=== PATIENT | female | born 1975 ===

== ENCOUNTER 2018-03-30 14:09 | Inpatient (IN) | payer OTHER ==
[2018-03-30] MEDS ORDERED: Sodium Chloride 0.9% 1,000 ML IV STA ×2 (14:42→16:32)
--- NOTE | 2018-03-30 14:53 | ED PDOC ---
HPI: General Adult Time Seen by Provider: 03/30/18 14:26 Chief Complaint (Nursing): High Blood Sugar Chief Complaint (Provider): High Blood Sugar History Per: Patient History/Exam Limitations: no limitations Onset/Duration Of Symptoms: Days (x 2) Current Symptoms Are (Timing): Still Present Additional Complaint(s): 43 year old female with no significant medical history presents to the ED for evaluation of abnormal lab results and mild pain upon urination for the last two days. She also reports feeling lightheaded today. Patient was seen at [facility] yesterday because she believed that she developed another yeast infection since being diagnosed with one last week. After further testing, she was found to have high glucose levels in her urine and dried vaginal blood during the exam. Otherwise, she denies cough, chest pain, shortness of breath, abdominal pain, back pain, nausea, vomiting, diarrhea, leg pain or swelling and vertigo. PMD: none provided Past Medical History Reviewed: Historical Data, Nursing Documentation, Vital Signs Vital Signs: Last Vital Signs Temp 102.8 F H 03/30/18 14:24 Pulse 150 H 03/30/18 14:24 Resp 18 03/30/18 14:24 BP 138/74 03/30/18 14:24 Pulse Ox 99 03/30/18 14:24 - Medical History PMH: No Chronic Diseases - Surgical History Surgical History: No Surg Hx - Family History Family History: States: Diabetes (father) - Allergies Allergies/Adverse Reactions: Allergies Allergy/AdvReac Type Severity Reaction Status Date / Time codeine Allergy RASH Verified 03/30/18 14:24 Penicillins Allergy RASH Verified 03/30/18 14:24 Review of Systems ROS Statement: Except As Marked, All Systems Reviewed And Found Negative Constitutional: Positive for: Fever, Other (lightheadedness) Cardiovascular: Negative for: Chest Pain Respiratory: Negative for: Cough, Shortness of Breath Genitourinary Female: Positive for: Dysuria (mild). Negative for: Frequency, Hematuria, Pelvic Pain Musculoskeletal: Negative for: Back Pain Neurological: Negative for: Headache, Dizziness Physical Exam - Reviewed Nursing Documentation Reviewed: Yes Vital Signs Reviewed: Yes - Physical Exam Appears: Positive for: No Acute Distress Head Exam: Positive for: ATRAUMATIC, NORMAL INSPECTION, NORMOCEPHALIC Skin: Positive for: Normal Color, Warm, Dry Eye Exam: Positive for: EOMI, Normal appearance, PERRL Neck: Positive for: Normal, Painless ROM, Supple Cardiovascular/Chest: Positive for: Tachycardia (with regular rhythm) Respiratory: Positive for: Normal Breath Sounds. Negative for: Respiratory Distress Gastrointestinal/Abdominal: Positive for: Normal Exam, Soft. Negative for: Tenderness, Mass, Distended, Guarding Back: Positive for: Normal Inspection. Negative for: L CVA Tenderness, R CVA Tenderness, Vertebral Tenderness Extremity: Positive for: Normal ROM (upper and lower extremities). Negative for: Deformity, Swelling Neurologic/Psych: Positive for: Alert, Oriented (x 3). Negative for: Motor/Sensory Deficits - Laboratory Results Result Diagrams: 03/30/18 15:14 03/30/18 15:14 Lab Results: 14.1 wbc, glucose elevated, urine wbc - ECG ECG: Positive for: Interpreted By Me, Viewed By Me ECG Rhythm: Positive for: Sinus Tachycardia O2 Sat by Pulse Oximetry: 99 (RA) Pulse Ox Interpretation: Normal - Progress ED Course And Treament: 1530: Continue fluids. Possible sepsis. 1640: Stable. Continue hydration. No pain. Feels better. Spoke with Dr. Byrd. Will admit. - Critical Care Total Time (In Min): 30 Documented Critical Care: Time excludes all time spent performint seperately billable procedures Medical Decision Making Medical Decision Makin:41 Impression: elevated glucose Initial Plan: --EKG --VBG --CBC --CMP --Glucose POC --Urine dip --Blood cx --Urine cx --UA --NS IV --Cipro 400 mg in 200 ml IV --Ibuprofen 600 mg PO --Influenza AB ------ Scribe Attestation: Documented by Brionna Nickreson acting as a scribe for Arnol Cook MD Provider Scribe Attestation: All medical record entries made by the Scribe were at my direction and personally dictated by me. I have reviewed the chart and agree that the record accurately reflects my personal performance of the history, physical exam, medical decision making, and the department course for this patient. I have also personally directed, reviewed, and agree with the discharge instructions and disposition. Disposition - Clinical Impression Clinical Impression: Hyperglycemia, Sepsis, UTI (urinary tract infection) Counseled Patient/Family Regarding: Studies Performed, Diagnosis - Disposition Disposition Time: 16:41 Condition: FAIR - Pt Status Changed To: Hospital Disposition Of: Inpatient - Admit Certification Admit to Inpatient:: After my assessment, the patient will require hospitalization for at least two midnights. This is because of the severity of symptoms shown, intensity of services needed, and/or the medical risk in this patient being treated as an outpatient. - POA Present On Arrival: Poor Glycemic Control
[2018-03-30] MEDS ORDERED: Ciprofloxacin 400mg/200ml D5W 400 MG/200 ML BAG IV STA (15:00)
[2018-03-30 15:19] LABS: BASO # 0.1 K/uL (0.0-0.2); BASO % 0.9 % (0.0-2.0); HEMOGLOBIN 10.2 g/dL (12.0-16.0); LYMPH # 0.3 K/uL (1.0-4.3); LYMPH % 1.8 % (20.0-40.0); MEAN CELL VOLUME 66.7 fl (81.0-99.0); MEAN CORPUSCULAR HEMOGLOBIN 21.2 pg (27.0-31.0); MEAN CORPUSCULAR HGB CONC 31.8 g/dL (33.0-37.0); MEAN PLATELET VOLUME 8.3 fl (7.2-11.7); MONO # 0.4 K/uL (0.0-0.8); MONO % 2.7 % (0.0-10.0); NEUT # 13.3 K/uL (1.8-7.0); NEUT % 94.6 % (50.0-75.0); PLATELET COUNT 262 K/uL (130-400); RBC 4.81 Mil/uL (3.80-5.20); RED CELL DISTRIBUTION WIDTH 16.5 % (11.5-14.5); WHITE BLOOD COUNT 14.1 K/uL (4.8-10.8)
[2018-03-30] MEDS ORDERED: Ciprofloxacin 400mg/200ml D5W 400 MG/200 ML BAG IVPB ONE (15:31)
[2018-03-30 15:35] LABS: VENOUS BLOOD GAS BASE EXCESS -1.7 mmol/L (0.0-2.0); VENOUS BLOOD GAS PCO2 34 mmHg (40-60); VENOUS BLOOD GAS PO2 38 mm/Hg (30-55); VENOUS BLOOD PH 7.42 (7.32-7.43)
[2018-03-30 15:36] LABS: SQUAMOUS EPITHIAL 17 /hpf (0-5); URINE BACTERIA RARE (<OCC); URINE BILIRUBIN NEGATIVE (NEGATIVE); URINE BLOOD MODERATE (NEGATIVE); URINE CLARITY CLOUDY (Clear); URINE COLOR YELLOW (YELLOW); URINE GLUCOSE (UA) >=500 mg/dL (NEGATIVE); URINE LEUKOCYTE ESTERASE NEG Leu/uL (Negative); URINE PROTEIN 100 mg/dL (NEGATIVE); URINE UROBILINOGEN 0.2-1.0 mg/dL (0.2-1.0)
[2018-03-30 15:40] LABS: ALB/GLOB RATIO 1.1 (1.0-2.1); ALBUMIN 3.9 g/dL (3.5-5.0); ALT/SGPT 29 U/L (9-52); AST/SGOT 34 U/L (14-36); BLOOD UREA NITROGEN 6 mg/dl (7-17); CALCIUM 8.4 mg/dL (8.4-10.2); GFR NON-AFRICAN AMERICAN > 60
[2018-03-30 15:59] LABS: ANISOCYTOSIS SLIGHT; BANDS 6 % (0-2); LYMPHOCYTE 3 % (20-50); METAMYELOCYTE 1 % (0-0); PLATELET ESTIMATE NORMAL (NORMAL); TOTAL CELLS COUNTED 100
[2018-03-30 16:00] LABS: MICROCYTOSIS SLIGHT; MONOCYTE 3 % (0-10); NEUTROPHIL 87 % (42-75); POIKILOCYTOSIS SLIGHT
[2018-03-30] MEDS ORDERED: Insulin NPH Human 100 Units/ml Inj SC STA (16:31)
[2018-03-30] MEDS ORDERED: Insulin Regular 100 units/ml ONE (16:34)
[2018-03-30] MEDS ORDERED: Insulin Regular 100 units/ml IV STA (16:45)
--- NOTE | 2018-03-30 16:57 | CP.PCM.HP ---
History of Present Illness - History of Present Illness History of Present Illness: 43-year-old female with no PMH presents to ED due to glucose found in her urine 1 day prior to presentation at an urgent care. She has been febrile (subjective) with vaginal itching and assumed she had a yeast infection, which is why she went to urgent care. She denies dysuria, hematuria, abnormal vaginal discharge, flank pain, chest pain, difficulty breathing, weight loss, polydipsia and abdominal fullness but does admit to chills, polyuria and vaginal pruritis. PMD: Denies PMH: Denies OBHx: G0, LMP Mar 13 Meds: Denies FHx: Mother DM Social: Denies alcohol, tobacco, illicit drugs ED Course: - Vitals: Temp: Tmax 103.2F, HR: 150, repeat 130 - UA: WBC 13, 17 Epithelial, Nitrate +, glucose >500, ketones 80 - CBC: WBC 14.1 - Cipro 400 mg once in ED - Glucose 450 on admission, Repeat glucose 361 s/p Insulin 3 units - Urine culture, blood culture Present on Admission - Present on Admission Any Indicators Present on Admission: No Review of Systems - Constitutional Constitutional: Chills, Fever. absent: Night Sweats - Cardiovascular Cardiovascular: absent: Chest Pain - Respiratory Respiratory: absent: Dyspnea - Genitourinary Genitourinary: Urinary Frequency. absent: Dysuria, Flank Pain, Hematuria - Reproductive: Female Reproductive:Female: Genital Pruritis. absent: Vaginal Discharge - Musculoskeletal Musculoskeletal: absent: Back Pain - Neurological Neurological: absent: Weakness - Endocrine Endocrine: Polyuria. absent: Cold Intolorance, Polydipsia, Polyphagia Past Patient History - Past Social History Smoking Status: Never Smoked - PSYCHIATRIC Hx Substance Use: No Meds Allergies/Adverse Reactions: Allergies Allergy/AdvReac Type Severity Reaction Status Date / Time codeine Allergy RASH Verified 03/30/18 14:24 Penicillins Allergy RASH Verified 03/30/18 14:24 Physical Exam - Constitutional Appears: Non-toxic, No Acute Distress - Head Exam Head Exam: NORMAL INSPECTION - Eye Exam Eye Exam: Normal appearance - ENT Exam ENT Exam: Mucous Membranes Moist - Respiratory Exam Respiratory Exam: NORMAL BREATHING PATTERN. absent: Respiratory Distress - Cardiovascular Exam Cardiovascular Exam: Tachycardia - GI/Abdominal Exam GI & Abdominal Exam: Soft. absent: Firm, Guarding, Rebound, Tenderness - Extremities Exam Extremities exam: Positive for: normal inspection - Back Exam Back exam: absent: CVA tenderness (L), CVA tenderness (R) - Neurological Exam Neurological exam: Alert, Normal Gait, Oriented x3 - Psychiatric Exam Psychiatric exam: Normal Affect, Normal Mood - Skin Skin Exam: Diaphoretic, Normal Color, Warm Results - Vital Signs Recent Vital Signs: Last Vital Signs Temp 103.2 F H 03/30/18 16:37 Pulse 130 H 03/30/18 16:34 Resp 18 03/30/18 14:24 BP 138/74 03/30/18 14:24 Pulse Ox 99 03/30/18 16:41 - Labs Result Diagrams: 03/30/18 15:14 03/30/18 15:14 Labs: Laboratory Results - last 24 hr 03/30/18 03/30/18 03/30/18 14:49 15:07 15:12 WBC RBC Hgb Hct MCV MCH MCHC RDW Plt Count MPV Neut % (Auto) Lymph % (Auto) [place] % (Auto) Eos % (Auto) Baso % (Auto) Neut # (Auto) Lymph # (Auto) [place] # (Auto) Eos # (Auto) Baso # (Auto) Neutrophils % (Manual) Band Neutrophils % Lymphocytes % (Manual) Monocytes % (Manual) Metamyelocytes % Platelet Estimate Poikilocytosis (manual Anisocytosis (manual) Microcytosis (manual) pO2 VBG pH VBG pCO2 VBG HCO3 VBG Total CO2 VBG O2 Sat (Calc) VBG Base Excess VBG Potassium Glucose Lactate FiO2 Crit Value Called To Crit Value Called By Crit Value Read Back Blood Gas Notified Time Sodium Potassium Chloride Carbon Dioxide Anion Gap BUN Creatinine Est GFR ( Amer) Est GFR (Non-Af Amer) POC Glucose (mg/dL) 463 H* Random Glucose Calcium Total Bilirubin AST ALT Alkaline Phosphatase Total Protein Albumin Globulin Albumin/Globulin Ratio Venous Blood Potassium Urine Color Yellow Urine Clarity Cloudy Urine pH 6.0 Ur Specific [place] 1.035 H Urine Protein 100 Urine Glucose (UA) >=500 Urine Ketones 80 Urine Blood Moderate Urine Nitrate Positive H Urine Bilirubin Negative Urine Urobilinogen 0.2-1.0 Ur Leukocyte Esterase Neg Urine RBC (Auto) 4 H Urine Microscopic WBC 13 H Ur Squamous Epith Cells 17 H Urine Bacteria Rare Influenza Typ A,B (EIA) Negative for flu a/b 03/30/18 03/30/18 03/30/18 15:14 15:14 15:30 WBC 14.1 H RBC 4.81 Hgb 10.2 L Hct 32.1 L MCV 66.7 L MCH 21.2 L MCHC 31.8 L RDW 16.5 H Plt Count 262 MPV 8.3 Neut % (Auto) 94.6 H Lymph % (Auto) 1.8 L [place] % (Auto) 2.7 Eos % (Auto) 0.0 Baso % (Auto) 0.9 Neut # (Auto) 13.3 H Lymph # (Auto) 0.3 L [place] # (Auto) 0.4 Eos # (Auto) 0.0 Baso # (Auto) 0.1 Neutrophils % (Manual) 87 H Band Neutrophils % 6 H Lymphocytes % (Manual) 3 L Monocytes % (Manual) 3 Metamyelocytes % 1 H Platelet Estimate Normal Poikilocytosis (manual Slight Anisocytosis (manual) Slight Microcytosis (manual) Slight pO2 38 VBG pH 7.42 VBG pCO2 34 L VBG HCO3 23.0 VBG Total CO2 23.1 VBG O2 Sat (Calc) 72.9 H VBG Base Excess -1.7 L VBG Potassium 3.9 Glucose 465 H* Lactate 2.8 H FiO2 21.0 Crit Value Called To Ronald tejeda md Crit Value Called By 6027 Crit Value Read Back Y Blood Gas Notified Time 1535 Sodium 128 L 128.0 L Potassium 3.9 Chloride 92 L 95.0 L Carbon Dioxide 21 L Anion Gap 19 BUN 6 L Creatinine 0.5 L Est GFR ( Amer) > 60 Est GFR (Non-Af Amer) > 60 POC Glucose (mg/dL) Random Glucose 450 H* Calcium 8.4 Total Bilirubin 0.9 AST 34 ALT 29 Alkaline Phosphatase 150 H Total Protein 7.3 Albumin 3.9 Globulin 3.5 Albumin/Globulin Ratio 1.1 Venous Blood Potassium 3.9 Urine Color Urine Clarity Urine pH Ur Specific [place] Urine Protein Urine Glucose (UA) Urine Ketones Urine Blood Urine Nitrate Urine Bilirubin Urine Urobilinogen Ur Leukocyte Esterase Urine RBC (Auto) Urine Microscopic WBC Ur Squamous Epith Cells Urine Bacteria Influenza Typ A,B (EIA) 03/30/18 16:31 WBC RBC Hgb Hct MCV MCH MCHC RDW Plt Count MPV Neut % (Auto) Lymph % (Auto) [place] % (Auto) Eos % (Auto) Baso % (Auto) Neut # (Auto) Lymph # (Auto) [place] # (Auto) Eos # (Auto) Baso # (Auto) Neutrophils % (Manual) Band Neutrophils % Lymphocytes % (Manual) Monocytes % (Manual) Metamyelocytes % Platelet Estimate Poikilocytosis (manual Anisocytosis (manual) Microcytosis (manual) pO2 VBG pH VBG pCO2 VBG HCO3 VBG Total CO2 VBG O2 Sat (Calc) VBG Base Excess VBG Potassium Glucose Lactate FiO2 Crit Value Called To Crit Value Called By Crit Value Read Back Blood Gas Notified Time Sodium Potassium Chloride Carbon Dioxide Anion Gap BUN Creatinine Est GFR ( Amer) Est GFR (Non-Af Amer) POC Glucose (mg/dL) 361 H Random Glucose Calcium Total Bilirubin AST ALT Alkaline Phosphatase Total Protein Albumin Globulin Albumin/Globulin Ratio Venous Blood Potassium Urine Color Urine Clarity Urine pH Ur Specific [place] Urine Protein Urine Glucose (UA) Urine Ketones Urine Blood Urine Nitrate Urine Bilirubin Urine Urobilinogen Ur Leukocyte Esterase Urine RBC (Auto) Urine Microscopic WBC Ur Squamous Epith Cells Urine Bacteria Influenza Typ A,B (EIA) Assessment & Plan - Assessment and Plan (Free Text) Plan: Sepsis likely secondary to acute complicated UTI - ED Vitals: Temp: Tmax 103.2F, HR: 150, repeat 130 - CBC: WBC 14.1 - UA: WBC 13, 17 Epithelial, Nitrate + - Lactate 2.8 - Cipro 400 mg in ED - Cipro 400 mg Q12H - Follow-up blood & urine culture Acute complicated UTI - UA: WBC 13, 17 Epithelial, Nitrate + - Vitals: Temp: Tmax 103.2F, HR: 150, repeat 130 - CBC: WBC 14.1 - Cipro 400 mg in ED - Cipro 400 mg Q12H - Follow-up urine culture Hyperglycemia - Glucose 450 on admission - Repeat glucose 361 s/p Insulin 3 units - UA glucose >500, ketones 80 - Follow-up HgA1C, TSH, Lipid Panel - As per pharmacy Cipro only available in D5W - Insulin sliding scale ordered + reflex hypo - Monitor Hyponatremia - Na 128, Corrected 135.0 mEq/L - Falsely low, d/t hyperglycemia - IVF: NaCl bolus in ED - Monitor DVT Prophylaxis - Lovenox
[2018-03-30] MEDS ORDERED: Glucagon Recombinant 1 mg Inj IM PRN (17:24)
[2018-03-30] MEDS ORDERED: Dextrose 50% SYRINGE Inj (50 ml) IV PRN (17:24)
[2018-03-30 18:50] LABS: VENOUS BLOOD GAS PCO2 24 mmHg (40-60); VENOUS BLOOD GAS PO2 51 mm/Hg (30-55); VENOUS BLOOD PH 7.42 (7.32-7.43)
[2018-03-30] MEDS ORDERED: Influenza Vaccine (5 YR UP)/PF 60 MCG/0.5 ML SYR IM ONE (21:00)
--- NOTE | 2018-03-30 22:28 | CARD ---
APPROVED REPORT Date of service: 03/30/2018 EKG Measurement Heart [id number] <Conclusion> Sinus tachycardia Junctional ST depression, probably normal Borderline ECG
[2018-03-31] MEDS: Ciprofloxacin 400mg/200ml D5W 400 MG/200 ML BAG IVPB SCH ×2 (03:18→16:19)
[2018-03-31 05:44] LABS: HEMOGLOBIN 9.3 g/dL (12.0-16.0); MEAN CELL VOLUME 67.2 fl (81.0-99.0); MEAN CORPUSCULAR HEMOGLOBIN 21.4 pg (27.0-31.0); MEAN CORPUSCULAR HGB CONC 31.8 g/dL (33.0-37.0); RBC 4.35 Mil/uL (3.80-5.20); RED CELL DISTRIBUTION WIDTH 16.7 % (11.5-14.5); WHITE BLOOD COUNT 9.1 K/uL (4.8-10.8)
[2018-03-31 06:41] LABS: BLOOD UREA NITROGEN 10 mg/dl (7-17); CALCIUM 7.8 mg/dL (8.4-10.2); GFR NON-AFRICAN AMERICAN > 60; HDL CHOLESTEROL 37 MG/DL (30-70)
[2018-03-31 06:42] LABS: LDL CHOLESTEROL 117 mg/dL (0-129)
[2018-03-31 09:34] VITALS: BMI 35.0
[2018-03-31] MEDS: Enoxaparin 40 mg Syringe SC SCH (09:35)
--- NOTE | 2018-03-31 10:26 | CP.PCM.PN ---
Subjective - Date & Time of Evaluation Date of Evaluation: 03/31/18 Time of Evaluation: 10:26 - Subjective Subjective: 43-year-old female seen ambulating in room in no acute distress. She admits to feeling better today and denies chills, diaphoresis, headache, dysuria, hematuria, nausea and vomiting. Educated patient on HgA1C, DM and Metformin; she denies any adverse effects to the metformin thus far. Objective - Vital Signs/Intake and Output Vital Signs (last 24 hours): Temp Pulse Resp BP Pulse Ox 97.9 F 92 H 20 101/64 96 03/31/18 08:22 03/31/18 08:22 03/31/18 08:22 03/31/18 08:22 03/31/18 08:22 - Medications Medications: Current Medications Acetaminophen (Tylenol 325mg Tab) 650 mg PO Q6 PRN PRN Reason: Fever >100.4 F Dextrose (Dextrose 50% Inj) 0 ml IV STAT PRN; Protocol PRN Reason: Hypoglycemia Protocol Dextrose (Glutose 15) 0 gm PO ONCE PRN; Protocol PRN Reason: Hypoglycemia Protocol Enoxaparin Sodium (Lovenox) 40 mg SC DAILY [facility]; Protocol Last Admin: 03/31/18 09:35 Dose: 40 mg Glucagon (Glucagen Diagnostic Kit) 0 mg IM STAT PRN; Protocol PRN Reason: Hypoglycemia Protocol Ciprofloxacin (Cipro 400mg/200ml Dsw) 400 mg in 200 mls @ 200 mls/hr IVPB BID SABINO; Protocol Last Admin: 03/31/18 03:18 Dose: 200 mls/hr Metformin HCl (Glucophage) 500 mg PO BIDWM SABINO Last Admin: 03/31/18 08:35 Dose: 500 mg - Labs Labs: 03/31/18 04:30 03/31/18 04:30 - Constitutional Appears: Non-toxic, No Acute Distress - Head Exam Head Exam: NORMAL INSPECTION - Eye Exam Eye Exam: Normal appearance - ENT Exam ENT Exam: Mucous Membranes Moist - Neck Exam Neck Exam: Normal Inspection - Respiratory Exam Respiratory Exam: NORMAL BREATHING PATTERN. absent: Respiratory Distress - Cardiovascular Exam Cardiovascular Exam: Tachycardia - GI/Abdominal Exam GI & Abdominal Exam: Soft. absent: Tenderness - Back Exam Back Exam: absent: CVA tenderness (L), CVA tenderness (R) - Neurological Exam Neurological Exam: Alert, Awake, Normal Gait, Oriented x3 - Psychiatric Exam Psychiatric exam: Normal Affect, Normal Mood - Skin Skin Exam: Dry, Intact, Normal Color, Warm Assessment and Plan - Assessment and Plan (Free Text) Assessment: 43 y/o female with no PMH presented with symptoms of dysuria and vaginal itching. She was diagnosed with glucosuria and ketone in urine in urgent care center one day prior to ED presentation. In ED found to be febrile (Tmax 103), WBC 14K, lactate 2.8 with glucose 430. She was tachycardic (HR 150), Na 128 (corrected 135), UA positive for bacteria, nitrate positive WBC 13. Plan: Sepsis likely secondary to acute complicated UTI - ED Vitals: Temp: Tmax 103.2F, HR: 150, repeat 130 - Remains Tachycardic - Afebrile - CBC: WBC 9.1 (14.1 admission) - UA admission: WBC 13, 17 Epithelial, Nitrate + - Lactate on admission 2.8 - Cipro 400 mg in ED - Cipro 400 mg Q12H - Follow-up blood & urine culture Acute complicated UTI - Initial UA: WBC 13, 17 Epithelial, Nitrate + - CBC: WBC 9.1 (14.1 admission) - Cipro 400 mg in ED - Cipro 400 mg Q12H - Follow-up urine culture New onset DM - Glucose 225 (450 on admission) - Metformin 500mg BID - Follow-up HgA1C - TSH 1.68 - Triglycerides 184, cholesterol WNL - As per pharmacy Cipro only available in D5W - Insulin sliding scale ordered + reflex hypo - Monitor Hyponatremia - Na 128, corrected 135.0 mEq/L - IVF: NaCl bolus in ED - Monitor DVT Prophylaxis - Lovenox
[2018-03-31] MEDS: Insulin Regular 100 units/ml SC SCH ×2 (16:20→21:29)
[2018-04-01 00:10] VITALS: RESP 18
[2018-04-01 05:24] LABS: MEAN CELL VOLUME 65.9 fl (81.0-99.0); MEAN CORPUSCULAR HEMOGLOBIN 20.8 pg (27.0-31.0); MEAN CORPUSCULAR HGB CONC 31.6 g/dL (33.0-37.0); RBC 4.33 Mil/uL (3.80-5.20); RED CELL DISTRIBUTION WIDTH 16.6 % (11.5-14.5)
[2018-04-01 05:31] LABS: BLOOD UREA NITROGEN 7 mg/dl (7-17); CALCIUM 8.3 mg/dL (8.4-10.2); GFR NON-AFRICAN AMERICAN > 60
[2018-04-01] MEDS: Insulin Regular 100 units/ml SC SCH (06:46)
[2018-04-01 07:56] VITALS: TEMP 99; O2SAT 97
[2018-04-01 08:13] LABS: SQUAMOUS EPITHIAL 1 /hpf (0-5); URINE BACTERIA RARE (<OCC); URINE BILIRUBIN NEGATIVE (NEGATIVE); URINE BLOOD NEGATIVE (NEGATIVE); URINE CLARITY SLIGHTY-CLOUDY (Clear); URINE COLOR YELLOW (YELLOW); URINE GLUCOSE (UA) 150 mg/dL (NEGATIVE); URINE LEUKOCYTE ESTERASE NEG Leu/uL (Negative); URINE PROTEIN NEGATIVE (NEGATIVE)
[2018-04-01] MEDS ORDERED: Potassium Chloride 20 mEq ER Tab PO ONE (08:30)
[2018-04-01] MEDS: Ciprofloxacin 400mg/200ml D5W 400 MG/200 ML BAG IVPB SCH (09:07)
[2018-04-01] MEDS: Enoxaparin 40 mg Syringe SC SCH (09:07)
--- NOTE | 2018-04-01 11:08 | CP.PCM.DIS ---
Provider - Provider Date of Admission: 03/30/18 16:37 Attending physician: Ralph Byrd MD Time Spent in preparation of Discharge (in minutes): 25 Diagnosis - Discharge Diagnosis (1) Sepsis Status: Acute (2) UTI (urinary tract infection) Status: Acute Hospital Course - Lab Results Lab Results: Micro Results 03/30/18 15:07 Urine,Clean Catch Urine Culture - Final Escherichia Coli 03/30/18 15:31 Blood-Venous Blood Culture - Preliminary NO GROWTH AFTER 24 HOURS 03/30/18 15:14 Blood-Venous Gram Stain - Final Most Recent Lab Values WBC 6.0 K/uL (4.8-10.8) 04/01/18 04:45 RBC 4.33 Mil/uL (3.80-5.20) 04/01/18 04:45 Hgb 9.0 g/dL (12.0-16.0) L 04/01/18 04:45 Hct 28.5 % (34.0-47.0) L 04/01/18 04:45 MCV 65.9 fl (81.0-99.0) L 04/01/18 04:45 MCH 20.8 pg (27.0-31.0) L 04/01/18 04:45 MCHC 31.6 g/dL (33.0-37.0) L 04/01/18 04:45 RDW 16.6 % (11.5-14.5) H 04/01/18 04:45 Plt Count 205 K/uL (130-400) 04/01/18 04:45 MPV 8.3 fl (7.2-11.7) 03/30/18 15:14 Neut % (Auto) 94.6 % (50.0-75.0) H 03/30/18 15:14 Lymph % (Auto) 1.8 % (20.0-40.0) L 03/30/18 15:14 [place] % (Auto) 2.7 % (0.0-10.0) 03/30/18 15:14 Eos % (Auto) 0.0 % (0.0-4.0) 03/30/18 15:14 Baso % (Auto) 0.9 % (0.0-2.0) 03/30/18 15:14 Neut # (Auto) 13.3 K/uL (1.8-7.0) H 03/30/18 15:14 Lymph # (Auto) 0.3 K/uL (1.0-4.3) L 03/30/18 15:14 [place] # (Auto) 0.4 K/uL (0.0-0.8) 03/30/18 15:14 Eos # (Auto) 0.0 K/uL (0.0-0.7) 03/30/18 15:14 Baso # (Auto) 0.1 K/uL (0.0-0.2) 03/30/18 15:14 Neutrophils % (Manual) 87 % (42-75) H 03/30/18 15:14 Band Neutrophils % 6 % (0-2) H 03/30/18 15:14 Lymphocytes % (Manual) 3 % (20-50) L 03/30/18 15:14 Monocytes % (Manual) 3 % (0-10) 03/30/18 15:14 Metamyelocytes % 1 % (0-0) H 03/30/18 15:14 Platelet Estimate Normal (NORMAL) 03/30/18 15:14 Poikilocytosis (manual Slight 03/30/18 15:14 Anisocytosis (manual) Slight 03/30/18 15:14 Microcytosis (manual) Slight 03/30/18 15:14 pO2 51 mm/Hg (30-55) 03/30/18 18:48 VBG pH 7.42 (7.32-7.43) 03/30/18 18:48 VBG pCO2 24 mmHg (40-60) L 03/30/18 18:48 VBG HCO3 19.2 mmol/L 03/30/18 18:48 VBG Total CO2 16.3 mmol/L (22-28) L 03/30/18 18:48 VBG O2 Sat (Calc) 93.9 % (40-65) H 03/30/18 18:48 VBG Base Excess -7.0 mmol/L (0.0-2.0) L 03/30/18 18:48 VBG Potassium 2.6 mmol/L (3.6-5.2) L 03/30/18 18:48 Sodium 136.0 mmol/L (132-148) 03/30/18 18:48 Chloride 110.0 mmol/L (98-107) H 03/30/18 18:48 Glucose 309 mg/dL (65-105) H 03/30/18 18:48 Lactate 1.5 mmol/L (0.7-2.1) 03/30/18 18:48 FiO2 21.0 % 03/30/18 18:48 Crit Value Called To Ronald tejeda md 03/30/18 15:30 Crit Value Called By [id number] 03/30/18 15:30 Crit Value Read Back Y 03/30/18 15:30 Blood Gas Notified Time 1535 03/30/18 15:30 Sodium 134 mmol/l (132-148) 04/01/18 04:45 Potassium 3.4 MMOL/L (3.6-5.0) L 04/01/18 04:45 Chloride 97 mmol/L (98-107) L 04/01/18 04:45 Carbon Dioxide 26 mmol/L (22-30) 04/01/18 04:45 Anion Gap 14 (10-20) 04/01/18 04:45 BUN 7 mg/dl (7-17) 04/01/18 04:45 Creatinine 0.4 mg/dl (0.7-1.2) L 04/01/18 04:45 Est GFR ( Amer) > 60 04/01/18 04:45 Est GFR (Non-Af Amer) > 60 04/01/18 04:45 POC Glucose (mg/dL) 304 mg/dL (65-110) H 04/01/18 10:30 Random Glucose 238 mg/dL (65-105) H 04/01/18 04:45 Hemoglobin A1c 11.8 % (4.2-6.5) H 03/31/18 04:30 Calcium 8.3 mg/dL (8.4-10.2) L 04/01/18 04:45 Total Bilirubin 0.9 mg/dl (0.2-1.3) 03/30/18 15:14 AST 34 U/L (14-36) 03/30/18 15:14 ALT 29 U/L (9-52) 03/30/18 15:14 Alkaline Phosphatase 150 U/L (38-126) H 03/30/18 15:14 Total Protein 7.3 G/DL (6.3-8.2) 03/30/18 15:14 Albumin 3.9 g/dL (3.5-5.0) 03/30/18 15:14 Globulin 3.5 gm/dL (2.2-3.9) 03/30/18 15:14 Albumin/Globulin Ratio 1.1 (1.0-2.1) 03/30/18 15:14 Triglycerides 184 mg/DL (0-149) H 03/31/18 04:30 Cholesterol 191 mg/dL (0-199) 03/31/18 04:30 LDL Cholesterol Direct 117 mg/dL (0-129) 03/31/18 04:30 HDL Cholesterol 37 MG/DL (30-70) 03/31/18 04:30 TSH 3rd Generation 1.68 mIU/ML (0.46-4.68) 03/31/18 04:30 Venous Blood Potassium 2.6 mmol/L (3.6-5.2) L 03/30/18 18:48 Urine Color Yellow (YELLOW) 04/01/18 07:05 Urine Clarity Slighty-cloudy (Clear) 04/01/18 07:05 Urine pH 6.0 (5.0-8.0) 04/01/18 07:05 Ur Specific [place] 1.018 (1.003-1.030) 04/01/18 07:05 Urine Protein Negative mg/dL (NEGATIVE) 04/01/18 07:05 Urine Glucose (UA) 150 mg/dL (NEGATIVE) 04/01/18 07:05 Urine Ketones 20 mg/dL (NEGATIVE) 04/01/18 07:05 Urine Blood Negative (NEGATIVE) 04/01/18 07:05 Urine Nitrate Negative (NEGATIVE) 04/01/18 07:05 Urine Bilirubin Negative (NEGATIVE) 04/01/18 07:05 Urine Urobilinogen 2.0 mg/dL (0.2-1.0) H 04/01/18 07:05 Ur Leukocyte Esterase Neg Rupal/uL (Negative) 04/01/18 07:05 Urine RBC (Auto) 4 /hpf (0-3) H 03/30/18 15:07 Urine Microscopic WBC 4 /hpf (0-5) 04/01/18 07:05 Ur Squamous Epith Cells 1 /hpf (0-5) 04/01/18 07:05 Urine Bacteria Rare (<OCC) 04/01/18 07:05 Influenza Typ A,B (EIA) Negative for flu a/b (NEGATIVE) 03/30/18 15:12 - Hospital Course Hospital Course: 43-year-old female with no PMH presented with symptoms of dysuria, vaginal itching and bleed was admitted patient for sepsis, UTI and new onset DM. In ED Vitals: Temp: Tmax 103.2F, HR: 150, repeat 130, WBC 14 K, lactate 2.8, glucose 430. Na 128, Corrected 135.0 mEq/L. Initial UA: positive for bacteria, nitrate and WBC (13). Her sugar remained high and she was placed on Metformin. Hgb A1c 11.8. Urine culture grew Ecoli, blood culture (1 of 2) gram neg rods, no growth to date. WBC normalized, patient clinically stable and improving and medically cleared for discharge to home. Discharge with PO course of Cipro and Metformin 850mg PO BID. Diabetes education was given and recommendations for follow up with MD within 1 week. Discharge Exam - Head Exam Head Exam: NORMAL INSPECTION - Eye Exam Eye Exam: Normal appearance - Respiratory Exam Respiratory Exam: NORMAL BREATHING PATTERN, UNREMARKABLE. absent: Respiratory Distress - Cardiovascular Exam Cardiovascular Exam: REGULAR RHYTHM - GI/Abdominal Exam GI & Abdominal Exam: Soft. absent: Tenderness - Back Exam Back exam: absent: CVA tenderness (L), CVA tenderness (R) - Neurological Exam Neurological exam: Alert, Normal Gait, Oriented x3 - Psychiatric Exam Psychiatric exam: Normal Affect, Normal Mood - Skin Skin Exam: Dry, Intact, Normal Color, Warm Discharge Plan - Discharge Medications Prescriptions: Ciprofloxacin [Cipro] 500 mg PO Q12H #20 tab metFORMIN [glucOPHAGE] 850 mg PO BIDWM #60 tab - Follow Up Plan Condition: FAIR Disposition: HOME/ ROUTINE Instructions: Urinary Tract Infection, Adult (DC), Hyperglycemia, Adult (DC), Blood Glucose Monitoring, The ABCs of Diabetes, Diabetes and Diet Additional Instructions: please follow up with in 1 week Referrals: [facility] [Provider Group] Fareed Pugh MD [Staff Provider] -
[2018-04-01 11:46] VITALS: BP 124/77; PULSE 102
== END 2018-04-01 12:44 | disposition home or self-care (01) | DRG 872 ==
LOC: H.ER 14:09 → H.ERHOLD 16:37 → H.TEL 17:37
PROVIDERS: ADMIT Hospitalist; ATTEND Hospitalist
DX: A41.9 Sepsis, unspecified organism (principal); N39.0 Urinary tract infection, site not specified; E87.1 Hypo-osmolality and hyponatremia; B37.3 Candidiasis of vulva and vagina; E11.65 Type 2 diabetes mellitus with hyperglycemia; L29.8 Other pruritus; Z79.84 Long term (current) use of oral hypoglycemic drugs; Z83.3 Family history of diabetes mellitus; R00.0 Tachycardia, unspecified